=== PATIENT | female | born 2000 | race Two or more races ===

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

== ENCOUNTER 2021-12-10 19:25 | Emergency (ER) | payer OTHER ==
[~2021-12-10] VITALS: Ht 162.6 cm; Wt 91.6 kg
[~2021-12-10 19:25] MED LIST: PRENATABS RX T1 EACH
[2021-12-10] MEDS ORDERED: FLUCONAZOLE100 MG PO (19:37)
[2021-12-10] MEDS ORDERED: AZITHROMYCIN250 MG (19:37)
== END 2021-12-10 22:31 | disposition home or self-care (01) ==
LOC: ER 19:25
DX: O26.891 Other specified pregnancy related conditions, first trimester (principal); Z3A.09 9 weeks gestation of pregnancy; R10.2 Pelvic and perineal pain